=== PATIENT | female | born 1995 | race Caucasian/White ===

== ENCOUNTER 2019-06-21 17:01 | Emergency (ER) | payer BC, OTHER ==
[~2019-06-21] VITALS: Ht 175.3 cm; Wt 67.1 kg
[2019-06-21 17:25] LABS: *BILIRUBIN,URIN NEGATIVE (NEGATIVE); *CLARITY,URINE CLOUDY (CLEAR); *COLOR,URINE YELLOW (YELLOW); *KETONES,URINE NEGATIVE (NEGATIVE); *UROBILINOGEN,URINE 0.2 E.U./dl (NORMAL); LEUKOCYTE ESTERASE ,URINE NEGATIVE (NEGATIVE); NITRITE, URINE NEGATIVE (NEGATIVE); UGLUCOSE NEGATIVE (NEGATIVE)
[2019-06-21 17:26] LABS: *BLOOD, URINE TRACE (NEGATIVE)
[2019-06-21 17:28] LABS: *URINE HCG, QUAL NEGATIVE (NEGATIVE)
[2019-06-21 17:33] LABS: MUCUS,URINE MODERATE /LPF (0-FEW); RBC,URINE 0-3 /HPF (0-3); SQUAMOUS EPITHELIAL CELL,UR MODERATE /HPF (NONE SEEN); URINE AMORPHOUS PHOSPHATES MANY /HPF; WBC,URINE 0-3 /HPF (0-3)
== END 2019-06-21 17:45 | disposition home or self-care (01) ==
LOC: ER 17:03
DX: N20.1 Calculus of ureter (principal)
CPT/HCPCS: 84703; A4663

== ENCOUNTER 2021-05-19 07:59 | Emergency (ER) | payer BC ==
[~2021-05-19] VITALS: Ht 175.3 cm; Wt 66.7 kg
--- NOTE | 2021-05-19 08:25 | NUR ---
PATIENT WAS MSE BY DR BENJAMIN IN ROOM 04A.
[2021-05-19] MEDS ORDERED: LIDOCAINE VISCUS 2% 15 ML UDC MM ONE (08:30)
[2021-05-19] MEDS ORDERED: DICYCLOMINE HCL LIQ 10 MG/5 ML UDC PO ONE (08:30)
[2021-05-19] MEDS ORDERED: ONDANSETRON ODT 4 MG TAB.RAPDIS SL ONE (08:30)
[2021-05-19] MEDS ORDERED: MAG HYDROX/AL HYDROX/SIMETH 30 ML LIQUID UDC PO ONE (08:30)
[2021-05-19 08:32] LABS: *BILIRUBIN,URIN NEGATIVE (NEGATIVE); *BLOOD, URINE NEGATIVE (NEGATIVE); *CLARITY,URINE CLEAR (CLEAR); *COLOR,URINE YELLOW (YELLOW); *KETONES,URINE NEGATIVE (NEGATIVE); *UROBILINOGEN,URINE 0.2 E.U./dl (NORMAL); LEUKOCYTE ESTERASE ,URINE NEGATIVE (NEGATIVE); NITRITE, URINE NEGATIVE (NEGATIVE); PH,URINE 6.5 (5.0-8.0); UGLUCOSE NEGATIVE (NEGATIVE)
[2021-05-19 08:33] LABS: *URINE HCG, QUAL NEG (NEGATIVE)
[2021-05-19] MEDS ORDERED: MAG HYDROX/AL HYDROX/SIMETH 30 ML LIQUID UDC ONE (08:52)
[2021-05-19] MEDS ORDERED: ONDANSETRON ODT 4 MG TAB.RAPDIS ONE (08:52)
[2021-05-19] MEDS ORDERED: LIDOCAINE VISCUS 2% 15 ML UDC ONE (08:53)
[2021-05-19] MEDS ORDERED: DICYCLOMINE HCL LIQ 10 MG/5 ML UDC ONE (08:53)
[2021-05-19 08:54] LABS: HEMATOCRIT 36.5 % (31.2-41.9); PLATELET COUNT (AUTO) 176 K/uL (179-408)
[2021-05-19 08:57] LABS: BILIRUBIN,DIRECT 0.1 mg/dL (0.0-0.2); BILIRUBIN,TOTAL 0.3 mg/dL (0.2-1.0); CREATININE 0.7 mg/dL (0.6-1.3); TOTAL PROTEIN, SERUM 7.9 g/dL (6.4-8.2)
[2021-05-19] MEDS ORDERED: FAMO-132 PO (09:53)
[2021-05-19 10:02] VITALS: BP 121/81
--- NOTE | 2021-05-19 10:05 | NUR ---
Patient discharged to home in stable condition. Written and verbal after care instructions given. Patient verbalizes understanding of instructions. Stressed follow up or return to ER for worsening s/s.
== END 2021-05-19 10:06 | disposition home or self-care (01) ==
LOC: ER 07:59
DX: R10.12 Left upper quadrant pain (principal); K21.9 Gastro-esophageal reflux disease without esophagitis
CPT/HCPCS: 36415; 83690; 84703; 85025; 93005; A4663; Q0162